=== PATIENT | male | born 1980 | race African-American/Black ===

== ENCOUNTER 2019-03-27 17:24 | Emergency (ER) | payer BC ==
[~2019-03-27] VITALS: Ht 180.3 cm; Wt 118.8 kg
--- NOTE | 2019-03-27 17:30 | NUR ---
[id number], FROM URGENT CARE, C/O CHEST SHARP PAIN, RADIATING TO UPPER BACK 10/10 PS WORST WHEN WALKING. PATIENT A/OX4, BREATHING EVEN AND UNLABORED, NO SOB NOTED, NEEDS ATTENDED. KEPT COMFORTABLE, ATTACHED TO THE [employer] CHARGER OPERATOR.
[2019-03-27 18:06] LABS: BASOPHILS % (AUTO) 0.3 % (0.0-2.0); EOSINOPHILS % (AUTO) 2.1 % (0.0-6.0); HEMATOCRIT 46 % (39-51); HEMOGLOBIN 15.8 g/dL (13.5-17.5); LYMPHOCYTES # (AUTO) 2.8 /CMM (0.8-4.8); LYMPHOCYTES % (AUTO) 37.6 % (20.0-44.0); MEAN CORPUSCULAR HGB CONC 34 g/dl (31.0-36.0); MEAN CORPUSCULAR VOLUME 90 fL (80-96); MONOCYTES # (AUTO) 0.7 /CMM (0.1-1.30); MONOCYTES % (AUTO) 8.9 % (2.0-12.0); NEUTROPHILS # (AUTO) 3.8 /CMM (1.8-8.9); NEUTROPHILS % (AUTO) 51.1 % (43.0-81.0); PLATELET COUNT (AUTO) 261 /CMM (150-450); WHITE BLOOD COUNT (AUTO) 7.5 K/uL (4.3-11.0)
[2019-03-27 18:31] LABS: CALCIUM, SERUM 9.3 mg/dL (8.5-10.1); CARBON DIOXIDE 25 mmol/L (21-32); CHLORIDE 105 mmol/L (98-107); GLUCOSE 103 mg/dL (74-106); POTASSIUM 3.7 mmol/L (3.5-5.1); SODIUM SERUM 141 mmol/L (136-145); UREA NITROGEN, BLOOD 20 mg/dL (7-18)
[2019-03-27] MEDS ORDERED: NITROGLYCERIN PACKET 1 GM PACKET TOP ONE (19:00)
[2019-03-27] MEDS ORDERED: ASPIRIN 81 MG TAB.CHEW PO ONE (19:00)
[2019-03-27] MEDS ORDERED: NITROGLYCERIN PACKET 1 GM PACKET ONE (19:03)
[2019-03-27] MEDS ORDERED: ASPIRIN 81 MG TAB.CHEW ONE (19:03)
[2019-03-27] MEDS ORDERED: IV NS 0.9% 1,000 ML BAG IV ONE (19:30)
--- NOTE | 2019-03-27 19:35 | NUR ---
PATIENT STILL C/O MILD CHEST PAIN. PER MD, OK TO GIVE NITRO WITH SBP 115. FAMILY AT BEDSIDE. PATIENT IN NO RESP DISTRESS. VITALS STABLE. ENDORSED TO SHELLY ESPINAL FOR ERIC.
--- NOTE | 2019-03-27 20:00 | NUR ---
PT AMBULATORY WITH STEADY GAIT TO RESTROOM
--- NOTE | 2019-03-27 20:05 | NUR ---
TECH AT BEDSIDE FOR REPEAT EKG
--- NOTE | 2019-03-27 20:11 | NUR ---
PHLEB AT BEDSIDE FOR BLOOD DRAW
--- NOTE | 2019-03-27 21:28 | NUR ---
PLATE MAKER ZINC CHELE CALLING [facility] TO FIND STATUS ON PT TRANSFER. WILL CALL BACK SHORTLY
[2019-03-27 21:37] VITALS: BP 117/67
--- NOTE | 2019-03-27 21:38 | NUR ---
TRANSFER INFO: PER ELECTRONICS ASSEMBLER CHELE HILL WILL GO TO [facility], DIRECT ADMIT TO ROOM 860-1, RN FOR REPORT [phone], ETA TO FOLLOW
--- NOTE | 2019-03-27 22:00 | NUR ---
ETA [id number] ASK TO BE TRANSFERED TO RN FOR ROOM 8601
--- NOTE | 2019-03-27 22:07 | NUR ---
REPORT GIVEN TO TEDDY ELDER AT [facility] FOR ERIC
--- NOTE | 2019-03-27 22:51 | NUR ---
PT WAS PICKED UP BY AMBULANCE. REPORT GIVEN TO JD.
== END 2019-03-27 22:52 | disposition short-term general hospital (02) ==
LOC: ER 17:28
DX: R07.89 Other chest pain (principal); E86.0 Dehydration; F12.10 Cannabis abuse, uncomplicated; F10.10 Alcohol abuse, uncomplicated; Y90.9 Presence of alcohol in blood, level not specified; Z98.890 Other specified postprocedural states; Z60.2 Problems related to living alone
CPT/HCPCS: 36415; 71045; 80048; 84484 ×2; 85025; 93005 ×3; 96360; 99285; J7030